=== PATIENT | male | born 1980 | race Caucasian/White ===

== ENCOUNTER 2022-01-07 08:54 | Outpatient (CLI) | payer OTHER, SELFPAY ==
[2022-01-07 14:12] LABS: Chloride* 105 mmol/L (96-114); Sodium* 143 mmol/L (135-149)
[2022-01-07 14:13] LABS: Potassium* 4.5 mmol/L (3.6-5.1)
[2022-01-07 14:15] LABS: Alkaline Phosphatase* 56 U/L (40-150); Aspartate Amino Transferase* 21 U/L (12-35); Bilirubin Total* 0.8 mg/dL (0.1-1.5); Blood Urea Nitrogen* 20 mg/dL (5-24); Carbon Dioxide* 30 mmol/L (20-32); Cholesterol* 218 mg/dL (90-199); Creatinine* 1.1 mg/dL (0.5-1.5); Estimated Glomerular Filt Rate 86 ml/min; Glucose* 104 mg/dL (60-115); Total Protein* 7.7 g/dL (6.0-8.3); Triglycerides* 149 mg/dL (40-149)
[2022-01-07 14:16] LABS: Alanine Aminotransferase* 21 U/L (4-50); Calcium* 9.8 mg/dL (8.4-10.6); HDL Cholesterol* 62 mg/dL (>=40); LDL Cholesterol Calculated 126 mg/dL (<100)
== END 2022-01-07 08:55 | disposition home or self-care (01) ==
PROVIDERS: PCP Family Medicine; Visit Provider Family Medicine
DX: Z00.00 Encounter for general adult medical examination without abnormal findings (principal); Z13.6 Encounter for screening for cardiovascular disorders
CPT/HCPCS: 80053; 80061

== ENCOUNTER 2023-01-15 07:39 | Outpatient (CLI) | payer BC, SELFPAY | END 2023-01-15 07:40 | disposition home or self-care (01) | PROVIDERS: PCP Family Medicine; Visit Provider Family Medicine | DX: Z00.00 Encounter for general adult medical examination without abnormal findings (principal); E78.5 Hyperlipidemia, unspecified | CPT/HCPCS: 80053; 80061 ==

== ENCOUNTER 2023-01-16 07:34 | Outpatient (RCR) | payer BC, SELFPAY | END 2023-03-26 10:58 | disposition home or self-care (01) | PROVIDERS: PCP Family Medicine; Visit Provider Family Medicine | DX: M54.2 Cervicalgia (principal); M54.32 Sciatica, left side; R26.81 Unsteadiness on feet; R29.898 Other symptoms and signs involving the musculoskeletal system; M62.81 Muscle weakness (generalized); Z51.89 Encounter for other specified aftercare | CPT/HCPCS: 97110; 97162 ==

== ENCOUNTER 2024-01-29 07:40 | Outpatient (CLI) | payer BC, SELFPAY | END 2024-01-29 07:41 | disposition home or self-care (01) | PROVIDERS: Visit Provider Physician Assistant Medical | DX: E78.5 Hyperlipidemia, unspecified (principal); Z13.228 Encounter for screening for other metabolic disorders; Z13.29 Encounter for screening for other suspected endocrine disorder | CPT/HCPCS: 80053; 80061; 84443 ==

== ENCOUNTER 2025-01-21 08:04 | Outpatient (CLI) | payer BC, SELFPAY | END 2025-01-21 08:05 | disposition home or self-care (01) | LOC: NFLDREF 01-26 11:17 | PROVIDERS: PCP Physician Assistant Medical; Referring Provider Physician Assistant Medical; Visit Provider Family Medicine | DX: Z00.00 Encounter for general adult medical examination without abnormal findings (principal); Z12.5 Encounter for screening for malignant neoplasm of prostate; Z13.6 Encounter for screening for cardiovascular disorders | CPT/HCPCS: 80053; 80061; G0103 ==